=== PATIENT | female | born 1950 | race Two or more races ===

== ENCOUNTER 2019-06-09 14:55 | Inpatient (IN) | payer MEDICARE ==
[~2019-06-09] VITALS: Ht 157.5 cm; Wt 79.2 kg
[2019-06-09 15:24] LABS: BASO # 0.1 x10^3/uL (0.0-0.2); BASO % 1 % (0-3); EOS # 0.3 x10^3/uL (0.0-0.7); EOS % 3 % (0-3); HEMATOCRIT 44.6 % (36.0-47.0); HEMOGLOBIN 15.4 g/dL (12.0-15.5); LYMPH # 4.4 x10^3/uL (1.0-4.8); LYMPH % 45 % (24-48); MEAN CORPUSCULAR HEMOGLOBIN 31 pg (25-35); MEAN CORPUSCULAR HGB CONC 34 g/dL (31-37); MEAN CORPUSCULAR VOLUME 90 fL (79-100); MONO # 0.6 x10^3/uL (0.0-1.1); MONO % 6 % (0-9); NEUT # 4.5 x10^3/uL (1.8-7.7); NEUT % 46 % (31-73); PLATELET COUNT 335 x10^3/uL (140-400); RED BLOOD COUNT 4.94 x10^6/uL (3.50-5.40); RED CELL DISTRIBUTION WIDTH 13.5 % (11.5-14.5); WHITE BLOOD COUNT 9.9 x10^3/uL (4.0-11.0)
[2019-06-09 15:33] LABS: PROTHROMBIN TIME PATIENT 12.8 SEC (11.7-14.0)
[2019-06-09 15:34] LABS: CALCIUM 9.3 mg/dL (8.5-10.1); GFR 55.5; POTASSIUM 3.4 mmol/L (3.5-5.1)
[2019-06-09 15:37] LABS: BILIRUBIN,URINE NEGATIVE (NEG); CLARITY,URINE CLEAR; COLOR,URINE YELLOW; NITRITE,URINE NEGATIVE (NEG); PH,URINE 6.5; PROTEIN,URINE NEGATIVE (NEG-TRACE); UROBILINOGEN,URINE 0.2 mg/dL (0.2 mg/dL)
[2019-06-09 15:43] LABS: ALBUMIN 3.7 g/dL (3.4-5.0); ALBUMIN/GLOBULIN RATIO 0.8 (1.0-1.7); MAGNESIUM 2.1 mg/dL (1.8-2.4); TOTAL BILIRUBIN 0.2 mg/dL (0.2-1.0); TOTAL PROTEIN 8.3 g/dL (6.4-8.2)
[2019-06-09 15:44] LABS: BACTERIA,URINE 0 /HPF (0-FEW); SQUAMOUS EPITHELIAL CELL,UR MOD /LPF; WBC,URINE OCC /HPF (0-4)
--- NOTE | 2019-06-09 15:47 | RAD ---
PORTABLE CHEST 1V Clinical indications: Chest pain. COMPARISON: None available. Findings: Small right lung base infiltrate or atelectasis is seen. No pleural effusion or pneumothorax is evident. The heart size, pulmonary vasculature, mediastinum and both ilan are unremarkable given AP magnification. Impression: Small right lung base infiltrate or atelectasis. Electronically signed by: Braulio Holland MD (06/09/2019 3:45 PM) [id number]
--- NOTE | 2019-06-09 15:52 | PHYS DOC ---
Adult General Chief Complaint Chief Complaint: CHEST PAIN HPI HPI Patient is a 68 year old female who presents with complaining of chest pain. Patient complaining of intermittent episodes of substernal pain or pressure pain with radiation to her back for the last 3 days associated with shortness of breath and nausea and dizziness that gradually getting worse after eating spicy food. Patient with her pain 3/10 and denies fever and chills, cough and congestion, focal neuro deficit. Patient stated she didn't feel good yesterday and stated and today had another episode of chest pain and ventilation and was advised to come to emergency room. Patient states she has had episodes of milder chest pain for a while but did not seek medical attention. Patient was seen by a physician for the last 10 years and denies having any medical problem. Review of Systems Review of Systems Constitutional: Denies fever or chills [] Eyes: Denies change in visual acuity, redness, or eye pain [] HENT: Denies nasal congestion or sore throat [] Respiratory: Denies cough, reports shortness of breath [] Cardiovascular: No additional information not addressed in HPI [] GI: Denies abdominal pain, vomiting, bloody stools or diarrhea [] : Denies dysuria or hematuria [] Musculoskeletal: Denies back pain or joint pain [] Integument: Denies rash or skin lesions [] Neurologic: Denies headache, focal weakness or sensory changes [] Endocrine: Denies polyuria or polydipsia [] All other systems were reviewed and found to be within normal limits, except as documented in this note. Current Medications Current Medications Current Medications Medications (Trade) Dose Ordered Sig/[facility] Start Time Stop Time Status Last Admin Dose Admin Aspirin ([facility] Aspirin) 324 mg 1X ONCE 06/09/19 18:00 06/09/19 18:01 Info (CONTRAST GIVEN -- Rx MONITORING) 1 each PRN DAILY PRN 06/09/19 16:30 06/11/19 16:29 Iohexol (Omnipaque 350 Mg/ml) 100 ml STK-MED ONCE 06/09/19 16:28 06/09/19 16:28 DC Allergies Allergies Allergies Coded Allergies Type Severity Reaction Last Updated Verified No Known Drug Allergies 06/09/19 No Physical Exam Physical Exam Constitutional: Well developed, well nourished, mild distress, non-toxic appearance. [] HENT: Normocephalic, atraumatic. Eyes: PERRLA, EOMI, conjunctiva normal, no discharge. [] Neck: Normal range of motion, no tenderness, supple, no stridor. [] Cardiovascular:Heart rate regular rhythm, no murmur [] Lungs & Thorax: Bilateral breath sounds clear to auscultation [] Abdomen: Bowel sounds normal, soft, epigastric tenderness, no tenderness, no masses, no pulsatile masses. [] Skin: Warm, dry, no erythema, no rash. [] Back: No tenderness, no CVA tenderness. [] Extremities: No tenderness, no cyanosis, no clubbing, ROM intact, no edema. [] Neurologic: Alert and oriented X 3, no focal deficits noted. [] Psychologic: Affect normal, judgement normal, mood normal. [] Current Patient Data Vital Signs Vital Signs Date Time Temp Pulse Resp B/P (MAP) Pulse Ox O2 Delivery O2 Flow Rate FiO2 06/09/19 16:04 66 18 161/69 (99) 93 Room Air 06/09/19 14:57 98.4 98.4 Lab Values Laboratory Tests Test 06/09/19 15:10 06/09/19 15:26 White Blood Count 9.9 x10^3/uL (4.0-11.0) Red Blood Count 4.94 x10^6/uL (3.50-5.40) Hemoglobin 15.4 g/dL (12.0-15.5) Hematocrit 44.6 % (36.0-47.0) Mean Corpuscular Volume 90 fL (79-100) Mean Corpuscular Hemoglobin 31 pg (25-35) Mean Corpuscular Hemoglobin Concent 34 g/dL (31-37) Red Cell Distribution Width 13.5 % (11.5-14.5) Platelet Count 335 x10^3/uL (140-400) Neutrophils (%) (Auto) 46 % (31-73) Lymphocytes (%) (Auto) 45 % (24-48) Monocytes (%) (Auto) 6 % (0-9) Eosinophils (%) (Auto) 3 % (0-3) Basophils (%) (Auto) 1 % (0-3) Neutrophils # (Auto) 4.5 x10^3/uL (1.8-7.7) Lymphocytes # (Auto) 4.4 x10^3/uL (1.0-4.8) Monocytes # (Auto) 0.6 x10^3/uL (0.0-1.1) Eosinophils # (Auto) 0.3 x10^3/uL (0.0-0.7) Basophils # (Auto) 0.1 x10^3/uL (0.0-0.2) Prothrombin Time 12.8 SEC (11.7-14.0) Prothrombin Time INR 1.0 (0.8-1.1) Sodium Level 143 mmol/L (136-145) Potassium Level 3.4 mmol/L (3.5-5.1) L Chloride Level 105 mmol/L (98-107) Carbon Dioxide Level 27 mmol/L (21-32) Anion Gap 11 (6-14) Blood Urea Nitrogen 12 mg/dL (7-20) Creatinine 1.0 mg/dL (0.6-1.0) Estimated GFR (Cockcroft-Gault) 55.5 BUN/Creatinine Ratio 12 (6-20) Glucose Level 119 mg/dL (70-99) H Calcium Level 9.3 mg/dL (8.5-10.1) Magnesium Level 2.1 mg/dL (1.8-2.4) Total Bilirubin 0.2 mg/dL (0.2-1.0) Aspartate Amino Transferase (AST) 31 U/L (15-37) Alanine Aminotransferase (ALT) 37 U/L (14-59) Alkaline Phosphatase 105 U/L (46-116) Creatine Kinase 126 U/L (26-192) Troponin I Quantitative < 0.017 ng/mL (0.000-0.055) OI-Hwi-T-Type Natriuretic Peptide 52 pg/mL (0-124) Total Protein 8.3 g/dL (6.4-8.2) H Albumin 3.7 g/dL (3.4-5.0) Albumin/Globulin Ratio 0.8 (1.0-1.7) L Lipase 337 U/L (73-393) Urine Collection Type Unknown Urine Color Yellow Urine Clarity Clear Urine pH 6.5 Urine Specific [place] 1.010 Urine Protein Negative mg/dL (NEG-TRACE) Urine Glucose (UA) Negative mg/dL (NEG) Urine Ketones (Stick) Negative mg/dL (NEG) Urine Blood Trace (NEG) Urine Nitrite Negative (NEG) Urine Bilirubin Negative (NEG) Urine Urobilinogen Dipstick 0.2 mg/dL (0.2 mg/dL) Urine Leukocyte Esterase Negative (NEG) Urine RBC 1-2 /HPF (0-2) Urine WBC Occ /HPF (0-4) Urine Squamous Epithelial Cells Mod /LPF Urine Bacteria 0 /HPF (0-FEW) Laboratory Tests 06/09/19 15:10 Laboratory Tests 06/09/19 15:10 EKG EKG EKG interpreted by me. EKG at 1505 showed normal sinus rhythm at rate of 78, incomplete right bundle-branch block, no acute ST and T-wave elevation. Radiology/Procedures Radiology/Procedures [][address] [address] IMAGING REPORT Signed PATIENT: PARI BHAGAT ACCOUNT: [id number] : 1950 LOCATION: ER AGE: 68 SEX: F EXAM STATUS: PRE ER ORD. PHYSICIAN: HEIDE WELSH MD REASON: chest pain PROCEDURE: PORTABLE CHEST 1V PORTABLE CHEST 1V Clinical indications: Chest pain. COMPARISON: None available. Findings: Small right lung base infiltrate or atelectasis is seen. No pleural effusion or pneumothorax is evident. The heart size, pulmonary vasculature, mediastinum and both ilan are unremarkable given AP magnification. Impression: Small right lung base infiltrate or atelectasis. Electronically signed by: Nita Holland MD (06/09/2019 3:45 PM) [id number] DICTATED and SIGNED BY: NITA HOLLAND MD DATE: 06/09/19 1545 [facility] [address] [place] [address] IMAGING REPORT Signed PATIENT: PARI BHAGAT ACCOUNT: [id number] : 1950 LOCATION: ER AGE: 68 SEX: F EXAM STATUS: REG ER ORD. PHYSICIAN: HEIDE WELSH MD REASON: epigastric and substernal pain PROCEDURE: ABDOMEN LTD ABDOMEN LTD: 06/09/2019 3:14 PM Indication: 68 years old Female. Epigastric and substernal pain. Comparison: None. TECHNIQUE: Sonographic evaluation of the right upper quadrant was performed utilizing grayscale and color Doppler imaging. FINDINGS: Liver: There is diffuse increased echogenicity of the hepatic parenchyma compatible with diffuse hepatocellular disease, most commonly due to steatosis. This decreases the sensitivity of ultrasound for the detection of focal hepatic lesions.. There is hepatopedal flow within the portal venous system. Right hepatic lobe measures 18.7 cm. Biliary system: CBD measures 4 mm. There is no intrahepatic or extrahepatic biliary dilatation. Gallbladder: Contracted limiting evaluation. Sonographic Wong sign: Negative Pancreas: Visualized head and uncinate process are unremarkable. Body and tail are not visualized. Right kidney: 10.0 x 4.6 x 3.9 cm. No hydronephrosis. Normal echotexture without focal mass or renal calculus. Free fluid:None. IMPRESSION: Increased echogenicity of the hepatic parenchyma compatible with diffuse hepatocellular disease, most commonly hepatic steatosis. This symptoms evaluation for underlying hepatic masses. If there is persistent clinical concern, further evaluation with MRI is recommended. Contracted gallbladder limiting evaluation. Electronically signed by: Swathi Branch MD (06/09/2019 4:08 PM) [facility] DICTATED and SIGNED BY: SWATHI BRANCH MD DATE: 06/09/19 1608 [facility] [address] [place] [address] IMAGING REPORT Signed PATIENT: PARI BHAGAT ACCOUNT: [id number] : 1950 LOCATION: ER AGE: 68 SEX: F EXAM STATUS: REG ER ORD. PHYSICIAN: HEIDE WELSH MD REASON: hypoxia no lung problem history PROCEDURE: CT ANGIOGRAPHY CHEST EXAM: CT angiography of the chest with intravenous contrast. HISTORY: Hypoxia. TECHNIQUE: Computed tomographic images of the chest were obtained following the administration of 90 cc Omnipaque 350 intravenous contrast according to angiography protocol. Multiplanar reformatting was performed three-dimensional maximum intensity projections were obtained. *One or more of the following individualized dose reduction techniques were utilized for this examination: 1. Automated exposure control. 2. Adjustment of the mA and/or kV according to patient size. 3. Use of iterative reconstruction technique. COMPARISON: None. FINDINGS: There is no convincing pulmonary embolism. Evaluation of the distal pulmonary arteries is limited due to respiratory motion. There is mild cardia megaly. The aorta is normal in caliber and demonstrates a standard aortic arch branching pattern. There are prominent mediastinal and hilar lymph nodes, a nonspecific finding. For reference purposes, there is a right paratracheal lymph node measuring 1.6 cm, a left hilar lymph node measuring 1.5 cm and right hilar lymph node measuring 1.3 cm. There is no pneumothorax or pleural effusion. There is scattered groundglass opacities throughout both lungs. There is suspected superimposed bilateral lower lobe and posterior dependent atelectasis. There is a 6 mm nodule within the right middle lobe along the minor fissure, likely a fissural lymph node. There is a tiny hiatal hernia. There is suspected hepatomegaly, partially excluded from the [id number]. The remainder of the upper abdomen is unremarkable. There is no suspicious osseous lesion. IMPRESSION: 1. No convincing pulmonary embolism. 2. Nonspecific groundglass opacities scattered throughout both lungs likely due to air trapping with superimposed edema and lower lobe predominant atelectasis. No consolidated infiltrate is seen. 3. Cardiomegaly. 4. Prominent mediastinal and hilar lymph nodes. These are nonspecific and may be reactive in etiology. 5. 6 mm nodule within the right middle lobe along the minor fissure, likely a fissural lymph node. Follow-up can be performed according to Fleischner Society criteria. Fleischner Society recommendations (Radiology 2017): SOLID NODULES Solitary solid nodule <6 mm - low-risk patient: no routine follow-up required - high-risk patient: optional CT at 12 months (particularly with suspicious nodule morphology and/or upper lobe location) Solitary solid nodule 6-8 mm - low-risk patient: CT at 6-12 months, then consider CT at 18-24 months - high risk patient: CT at 6-12 months, then if persistent CT at 18-24 months Solitary solid nodule >8 mm - consider CT at 3 months, PET/CT, or tissue sampling Multiple solid nodules <6 mm - low-risk patient: no routine follow-up required - high-risk patient: optional CT at 12 months Multiple solid nodules >6 mm - low-risk patient: CT at 3-6 months, then consider CT at 18-24 months - high risk patient: CT at 3-6 months, then if persistent CT at 18-24 months SUBSOLID NODULES Solitary ground glass nodule <6 mm - no routine follow-up required Solitary ground glass nodule > or = 6 mm - CT at 6-12 months, then if persistent CT every 2 years until 5 years Solitary part solid nodule > or = 6mm - CT at 3-4 months, the if persistent and solid component remains <6 mm, annual CT until 5 years Multiple subsolid nodules <6 mm - CT at 3-6 months, then if stable consider CT at 2 and 4 years in high risk patients Multiple subsolid nodules > or = 6 mm - CT at 3-6 months, then subsequent management based on the most suspicious nodule(s) Electronically signed by: Patria Bowling MD (06/09/2019 4:57 PM) [place] [id number] DICTATED and SIGNED BY: PATRIA BOWLING MD DATE: 06/09/191656 Course & Med Decision Making Course & Med Decision Making Pertinent Labs and Imaging studies reviewed. (See chart for details) Patient requiring admission for further evaluation and treatment. Discussed with Dr. Jacome who is in agreement with admission. Discussed findings and plan with patient and family, who acknowledge understanding and agreement. Dragon Disclaimer Dragon Disclaimer This electronic medical record was generated, in whole or in part, using a voice recognition dictation system. Departure Departure Impression: Primary Impression: Acute chest pain Additional Impression: Hypoxia Disposition: 09 ADMITTED INPATIENT (at 1750) Admitting Physician: LUIS (Dr jacome accepted admission at 1750) Condition: IMPROVED Problem Qualifiers HEIDE WELSH MD Jun 09, 2019 15:52
--- NOTE | 2019-06-09 16:11 | RAD ---
ABDOMEN LTD: 06/09/2019 3:14 PM Indication: 68 years old Female. Epigastric and substernal pain. Comparison: None. TECHNIQUE: Sonographic evaluation of the right upper quadrant was performed utilizing grayscale and color Doppler imaging. FINDINGS: Liver: There is diffuse increased echogenicity of the hepatic parenchyma compatible with diffuse hepatocellular disease, most commonly due to steatosis. This decreases the sensitivity of ultrasound for the detection of focal hepatic lesions.. There is hepatopedal flow within the portal venous system. Right hepatic lobe measures 18.7 cm. Biliary system: CBD measures 4 mm. There is no intrahepatic or extrahepatic biliary dilatation. Gallbladder: Contracted limiting evaluation. Sonographic Wong sign: Negative Pancreas: Visualized head and uncinate process are unremarkable. Body and tail are not visualized. Right kidney: 10.0 x 4.6 x 3.9 cm. No hydronephrosis. Normal echotexture without focal mass or renal calculus. Free fluid:None. IMPRESSION: Increased echogenicity of the hepatic parenchyma compatible with diffuse hepatocellular disease, most commonly hepatic steatosis. This symptoms evaluation for underlying hepatic masses. If there is persistent clinical concern, further evaluation with MRI is recommended. Contracted gallbladder limiting evaluation. Electronically signed by: Delfina Knowles MD (06/09/2019 4:08 PM) [facility]
[2019-06-09] MEDS ORDERED: IOHEXOL 350 MG/ML 100 ML VIAL. ONE (16:28)
[2019-06-09] MEDS ORDERED: CONTRAST GIVEN. MC PRN (16:30)
[2019-06-09] MEDS ORDERED: IOHEXOL 350 MG/ML 100 ML VIAL. IV ONE (16:30)
--- NOTE | 2019-06-09 17:00 | RAD ---
EXAM: CT angiography of the chest with intravenous contrast. HISTORY: Hypoxia. TECHNIQUE: Computed tomographic images of the chest were obtained following the administration of 90 cc Omnipaque 350 intravenous contrast according to angiography protocol. Multiplanar reformatting was performed three-dimensional maximum intensity projections were obtained. *One or more of the following individualized dose reduction techniques were utilized for this examination: 1. Automated exposure control. 2. Adjustment of the mA and/or kV according to patient size. 3. Use of iterative reconstruction technique. COMPARISON: None. FINDINGS: There is no convincing pulmonary embolism. Evaluation of the distal pulmonary arteries is limited due to respiratory motion. There is mild cardia megaly. The aorta is normal in caliber and demonstrates a standard aortic arch branching pattern. There are prominent mediastinal and hilar lymph nodes, a nonspecific finding. For reference purposes, there is a right paratracheal lymph node measuring 1.6 cm, a left hilar lymph node measuring 1.5 cm and right hilar lymph node measuring 1.3 cm. There is no pneumothorax or pleural effusion. There is scattered groundglass opacities throughout both lungs. There is suspected superimposed bilateral lower lobe and posterior dependent atelectasis. There is a 6 mm nodule within the right middle lobe along the minor fissure, likely a fissural lymph node. There is a tiny hiatal hernia. There is suspected hepatomegaly, partially excluded from the tprue-mo-cyer. The remainder of the upper abdomen is unremarkable. There is no suspicious osseous lesion. IMPRESSION: 1. No convincing pulmonary embolism. 2. Nonspecific groundglass opacities scattered throughout both lungs likely due to air trapping with superimposed edema and lower lobe predominant atelectasis. No consolidated infiltrate is seen. 3. Cardiomegaly. 4. Prominent mediastinal and hilar lymph nodes. These are nonspecific and may be reactive in etiology. 5. 6 mm nodule within the right middle lobe along the minor fissure, likely a fissural lymph node. Follow-up can be performed according to Fleischner Society criteria. Fleischner Society recommendations (Radiology 2017): SOLID NODULES Solitary solid nodule <6 mm - low-risk patient: no routine follow-up required - high-risk patient: optional CT at 12 months (particularly with suspicious nodule morphology and/or upper lobe location) Solitary solid nodule 6-8 mm - low-risk patient: CT at 6-12 months, then consider CT at 18-24 months - high risk patient: CT at 6-12 months, then if persistent CT at 18-24 months Solitary solid nodule >8 mm - consider CT at 3 months, PET/CT, or tissue sampling Multiple solid nodules <6 mm - low-risk patient: no routine follow-up required - high-risk patient: optional CT at 12 months Multiple solid nodules >6 mm - low-risk patient: CT at 3-6 months, then consider CT at 18-24 months - high risk patient: CT at 3-6 months, then if persistent CT at 18-24 months SUBSOLID NODULES Solitary ground glass nodule <6 mm - no routine follow-up required Solitary ground glass nodule > or = 6 mm - CT at 6-12 months, then if persistent CT every 2 years until 5 years Solitary part solid nodule > or = 6mm - CT at 3-4 months, the if persistent and solid component remains <6 mm, annual CT until 5 years Multiple subsolid nodules <6 mm - CT at 3-6 months, then if stable consider CT at 2 and 4 years in high risk patients Multiple subsolid nodules > or = 6 mm - CT at 3-6 months, then subsequent management based on the most suspicious nodule(s) Electronically signed by: Patria Godoy MD (06/09/2019 4:57 PM) [facility]
[2019-06-09] MEDS ORDERED: ASPIRIN CHEWABLE 81 MG TABLET. PO ONE (18:00)
[2019-06-09] MEDS ORDERED: POTASSIUM CHLORIDE 20 MEQ TABLET.ER. PO ONE (19:00)
[2019-06-09 19:30] VITALS: BP 182/80
--- NOTE | 2019-06-09 20:00 | NUR ---
A 68 yo female admitted with chest pain, accompanied by family. Pt a/ox3, denies pain at this time. Admission packet given, poc explained ,call light in place, will cont to monitor pt status and safety. pmrn
--- NOTE | 2019-06-09 20:22 | HP ---
ADMIT DATE: 06/09/2019 CHIEF COMPLAINT: Chest pain. HISTORY OF PRESENT ILLNESS: The patient is a pleasant 68-year-old female who presents with chest pain that has been intermittent and substernal in nature. She feels pressure in her chest, radiates to her back. It has been occurring for 3 days at least. She tried taking some dpew-ysl-pnezhhj meds that did not work. We did some imaging in the ER, also showing some pulmonary nodules. I discussed the case with ER physician. We are going to admit the patient and consult Cardiology and Pulmonary. PAST MEDICAL HISTORY: None. ALLERGIES: None. FAMILY HISTORY: Hypertension. SOCIAL HISTORY: She does not drink, smoke or take drugs. Her daughters are nurses. 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 MEDICATIONS: Reviewed, please refer to the MRAD. REVIEW OF SYSTEMS: GENERAL: No history of weight change, weakness or fevers. SKIN: No bruising, hair changes or rashes. EYES: No blurred, double or loss of vision. NOSE AND THROAT: No history of nosebleeds, hoarseness or sore throat. HEART: No history of palpitations, chest pain or shortness of breath on exertion. LUNGS: Denies cough, hemoptysis, wheezing or shortness of breath. GASTROINTESTINAL: Denies changes in appetite, nausea, vomiting, diarrhea or constipation. GENITOURINARY: No history of frequency, urgency, hesitancy or nocturia. NEUROLOGIC: Denies history of numbness, tingling, tremor or weakness. PSYCHIATRIC: No history of panic, anxiety or depression. ENDOCRINE: No history of heat or cold intolerance, polyuria or polydipsia. EXTREMITIES: Denies muscle weakness, joint pain, pain on walking or stiffness. PHYSICAL EXAMINATION: VITALS: Within normal limits and are stable. GENERAL: No apparent distress. Alert and oriented. HEENT: Head is normocephalic, atraumatic, pupils were equally round and reactive to light and accommodation. NECK: Supple, no JVD, no thyromegaly was noted. LUNGS: Clear to auscultation in all lung gandhi without rhonchi or wheezing. HEART: RRR, S1, S2 present. Peripheral pulses intact, no obvious murmurs were noted. ABDOMEN: Soft, nontender. Positive bowel sounds no organomegaly, normal bowel sounds. EXTREMITIES: Without any cyanosis, clubbing, or edema. Pedal pulses intact, Homans sign is negative. NEUROLOGIC: Normal speech, normal tone. A and O x 3, moves all extremities, no obvious focal deficits. PSYCHIATRIC: Normal affect, normal mood. Stable. SKIN: No ulcerations or rashes, good skin turgor, no jaundice. VASCULAR: Good capillary refill, neurovascular bundle appears to be intact. LABORATORY DATA: Hematology is normal. Electrolytes are normal. Troponin is 0. Potassium is little low at 3.4. INR is 1. Urinalysis negative. ASSESSMENT AND PLAN: Chest pain and pulmonary nodules. The patient has been admitted. We will consult Pulmonary and Cardiology. Serial enzymes, serial EKGs. Suspect she might need a stress test, but we will await Cardiology input. DVT prophylaxis. Full code. Home meds. CHRISTOS DESIR DO DR: NANNETTE/siobhan JOB#: [id number] / [id number]
[2019-06-09] MEDS ORDERED: amLODIPine BESYLATE 10 MG TABLET PO ONE (21:00)
[2019-06-09 23:00] VITALS: BP 177/77
[2019-06-10] MEDS ORDERED: ONDANSETRON PF 4 MG/2 ML VIAL. IVP PRN (02:00)
[2019-06-10] MEDS ORDERED: hydrALAZINE 20 MG/ML VIAL. IVP PRN (02:00)
[2019-06-10 03:00] VITALS: BP 180/78
[2019-06-10] MEDS ORDERED: INFLUENZA VAX SCREEN BY RX. MC PRN (03:15)
[2019-06-10 04:01] VITALS: BP 118/62
[2019-06-10 05:57] LABS: CHOLESTEROL/HDL RATIO 4.9
--- NOTE | 2019-06-10 06:16 | EKG ---
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
[2019-06-10 07:00] VITALS: BP 147/75
[2019-06-10] MEDS ORDERED: amLODIPine BESYLATE 10 MG TABLET PO SCH (09:00)
[2019-06-10] MEDS ORDERED: FLU VAX QS 2019-20 (36MOS+)/PF 0.5 ML SYRINGE. VAX IM ONE (09:00)
--- NOTE | 2019-06-10 10:36 | PDOC2 ---
CARDIAC CONSULT DATE OF CONSULT Date of Consult DATE: 06/10/19 TIME: 10:35 REASON FOR CONSULT Reason for Consult: Chest pain REFERRING PHYSICIAN Referring Physician: Naa SOURCE Source: Chart review, Patient HISTORY OF PRESENT ILLNESS HISTORY OF PRESENT ILLNESS This is a pleasant 68 yo female admitted for complains of chest pain. Reports that this started the other day. Described it as sharp pain mainly to epigastric sternal junction lasting <1 minute and radiating to immediate mid back. This occurred again yesterday afternoon prompting her to be more concerned. She has been belching and sometimes nausea and has sourness in the back of her throat intermittently. Reports again that her discomfort last only <1 minute. Denies any SOA, nor [place]. No exertional CP and no changes to her activity tolerance. Reports that she has not seen any physicioan for a while. No routine medications. No hx of PUD, CAD, VTE or any falls or injury. She does take zantac at times for her heartburn. PAST MEDICAL HISTORY Past Medical History No pertinent history PAST SURGICAL HISTORY Past Surgical History: No pertinent history FAMILY HISTORY Family History noncontributory to CV SOCIAL HISTORY Smoke: No ALCOHOL: none Drugs: None Lives: with Family CURRENT MEDICATIONS CURRENT MEDICATIONS Current Medications Medications (Trade) Dose Ordered Sig/Kentrell Route PRN Reason Start Time Stop Time Status Last Admin Dose Admin Iohexol (Omnipaque 350 Mg/ml) 90 ml 1X ONCE IV 06/09/19 16:30 06/09/19 16:31 DC 06/09/19 16:43 Aspirin (Children'S Aspirin) 324 mg 1X ONCE PO 06/09/19 18:00 06/09/19 18:01 DC 06/09/19 18:22 Potassium Chloride (Klor-Con) 40 meq 1X ONCE PO 06/09/19 19:00 06/09/19 19:01 DC 06/09/19 19:22 Amlodipine Besylate (Norvasc) 10 mg 1X ONCE PO 06/09/19 21:00 06/09/19 21:01 DC 06/09/19 21:12 Amlodipine Besylate (Norvasc) 10 mg DAILY PO 06/10/19 09:00 06/10/19 09:13 Ondansetron HCl (Zofran) 4 mg PRN Q4HRS PRN IVP NAUSEA/VOMITING 06/10/19 02:00 06/10/19 02:11 Hydralazine HCl (Apresoline Inj) 10 mg PRN Q4HRS PRN IVP ELEVATED BP, SEE COMMENTS 06/10/19 02:00 06/10/19 02:12 ALLERGIES ALLERGIES: Coded Allergies: No Known Drug Allergies (Unverified , 06/09/19) ROS Review of System 14 point ROS evaluated with pertinent positives noted per HPI PHYSICAL EXAM General: Alert, Oriented X3, Cooperative, No acute distress HEENT: Atraumatic, Mucous membr. moist/pink Lungs: Clear to auscultation, Normal air movement Heart: Regular rate (SR), Normal S1, Normal S2, No murmurs Abdomen: Soft, No tenderness Extremities: No cyanosis, No edema Skin: No breakdown, No significant lesion Neuro: Normal speech, Sensation intact Psych/Mental Status: Mental status NL, Mood NL MUSCULOSKELETAL: Osteoarthritic changes both hands VITALS/I&O VITALS/I&O: Vital Signs Date Time Temp Pulse Resp B/P (MAP) Pulse Ox O2 Delivery O2 Flow Rate FiO2 06/10/19 09:13 90 147/75 06/10/19 07:00 98.2 16 94 Room Air 98.2 06/10/19 03:00 94.0 I & O 06/09/19 06/09/19 06/10/19 15:00 23:00 07:00 Intake Total 250 ml Output Total 500 ml 200 ml Balance -500 ml 50 ml LABS Lab: Laboratory Tests Test 06/09/19 15:10 06/09/19 15:26 06/10/19 04:43 White Blood Count 9.9 x10^3/uL (4.0-11.0) Red Blood Count 4.94 x10^6/uL (3.50-5.40) Hemoglobin 15.4 g/dL (12.0-15.5) Hematocrit 44.6 % (36.0-47.0) Mean Corpuscular Volume 90 fL (79-100) Mean Corpuscular Hemoglobin 31 pg (25-35) Mean Corpuscular Hemoglobin Concent 34 g/dL (31-37) Red Cell Distribution Width 13.5 % (11.5-14.5) Platelet Count 335 x10^3/uL (140-400) Neutrophils (%) (Auto) 46 % (31-73) Lymphocytes (%) (Auto) 45 % (24-48) Monocytes (%) (Auto) 6 % (0-9) Eosinophils (%) (Auto) 3 % (0-3) Basophils (%) (Auto) 1 % (0-3) Neutrophils # (Auto) 4.5 x10^3/uL (1.8-7.7) Lymphocytes # (Auto) 4.4 x10^3/uL (1.0-4.8) Monocytes # (Auto) 0.6 x10^3/uL (0.0-1.1) Eosinophils # (Auto) 0.3 x10^3/uL (0.0-0.7) Basophils # (Auto) 0.1 x10^3/uL (0.0-0.2) Prothrombin Time 12.8 SEC (11.7-14.0) Prothrombin Time INR 1.0 (0.8-1.1) Sodium Level 143 mmol/L (136-145) Potassium Level 3.4 mmol/L (3.5-5.1) L Chloride Level 105 mmol/L (98-107) Carbon Dioxide Level 27 mmol/L (21-32) Anion Gap 11 (6-14) Blood Urea Nitrogen 12 mg/dL (7-20) Creatinine 1.0 mg/dL (0.6-1.0) Estimated GFR (Cockcroft-Gault) 55.5 BUN/Creatinine Ratio 12 (6-20) Glucose Level 119 mg/dL (70-99) H Calcium Level 9.3 mg/dL (8.5-10.1) Magnesium Level 2.1 mg/dL (1.8-2.4) Total Bilirubin 0.2 mg/dL (0.2-1.0) Aspartate Amino Transferase (AST) 31 U/L (15-37) Alanine Aminotransferase (ALT) 37 U/L (14-59) Alkaline Phosphatase 105 U/L (46-116) Creatine Kinase 126 U/L (26-192) Troponin I Quantitative < 0.017 ng/mL (0.000-0.055) < 0.017 ng/mL (0.000-0.055) YK-Jtv-D-Type Natriuretic Peptide 52 pg/mL (0-124) Total Protein 8.3 g/dL (6.4-8.2) H Albumin 3.7 g/dL (3.4-5.0) Albumin/Globulin Ratio 0.8 (1.0-1.7) L Lipase 337 U/L (73-393) Urine Collection Type Unknown Urine Color Yellow Urine Clarity Clear Urine pH 6.5 Urine Specific [place] 1.010 Urine Protein Negative mg/dL (NEG-TRACE) Urine Glucose (UA) Negative mg/dL (NEG) Urine Ketones (Stick) Negative mg/dL (NEG) Urine Blood Trace (NEG) Urine Nitrite Negative (NEG) Urine Bilirubin Negative (NEG) Urine Urobilinogen Dipstick 0.2 mg/dL (0.2 mg/dL) Urine Leukocyte Esterase Negative (NEG) Urine RBC 1-2 /HPF (0-2) Urine WBC Occ /HPF (0-4) Urine Squamous Epithelial Cells Mod /LPF Urine Bacteria 0 /HPF (0-FEW) Triglycerides Level 123 mg/dL (0-150) Cholesterol Level 172 mg/dL (0-200) LDL Cholesterol, Calculated 112 mg/dL (0-100) H VLDL Cholesterol, Calculated 25 mg/dL (0-40) Non-HDL Cholesterol Calculated 137 mg/dL (0-129) H HDL Cholesterol 35 mg/dL (40-60) L Cholesterol/HDL Ratio 4.9 Thyroid Stimulating Hormone (TSH) 5.030 uIU/mL (0.358-3.74) H Laboratory Tests 06/09/19 15:10 Laboratory Tests 06/09/19 15:10 ASSESSMENT/PLAN ASSESSMENT/PLAN 1. Atypical CP: possibly GI 2. RBBB: no prior EKG for comparison 3. HTN urgency 4. HLP 5. Obesity Recommendations 1. Agree with amlodipine. Statin 2. TTE and TSH 3. Will consider for outpt stress test. 4. Consider GI workup as an outpt 5. PPI 6. Follow up in office LILIANA FREITAS APRN Jun 10, 2019 10:36
[2019-06-10 10:40] VITALS: BP 142/67
--- NOTE | 2019-06-10 13:05 | PDOC ---
[facility] PROGRESS NOTE Chief Complaint Chief Complaint Atypical chest pain Elevated TSH History of Present Illness History of Present Illness 06/10/19 Pt was seen and examined at bedside Was joined by and granddaughter TSH elevated at 5.030 Troponin was <0.017 Ground glass opacities, lower lobe atelectasis in lungs on CTA Charts and labs reviewed DW YAA Vitals/I&O Vitals/I&O: Vital Signs Date Time Temp Pulse Resp B/P (MAP) Pulse Ox O2 Delivery O2 Flow Rate FiO2 06/10/19 10:40 98.3 78 18 142/67 (92) 95 Room Air 98.3 06/10/19 03:00 94.0 I & O 06/09/19 06/09/19 06/10/19 15:00 23:00 07:00 Intake Total 250 ml Output Total 500 ml 200 ml Balance -500 ml 50 ml Physical Exam General: Alert, Oriented X3, Cooperative, mild distress Heart: Regular rate Abdomen: Normal bowel sounds Extremities: No clubbing, No cyanosis, No edema Skin: No rashes, No breakdown Labs Labs: Laboratory Tests Test 06/09/19 15:10 06/09/19 15:26 06/10/19 04:43 White Blood Count 9.9 x10^3/uL (4.0-11.0) Red Blood Count 4.94 x10^6/uL (3.50-5.40) Hemoglobin 15.4 g/dL (12.0-15.5) Hematocrit 44.6 % (36.0-47.0) Mean Corpuscular Volume 90 fL (79-100) Mean Corpuscular Hemoglobin 31 pg (25-35) Mean Corpuscular Hemoglobin Concent 34 g/dL (31-37) Red Cell Distribution Width 13.5 % (11.5-14.5) Platelet Count 335 x10^3/uL (140-400) Neutrophils (%) (Auto) 46 % (31-73) Lymphocytes (%) (Auto) 45 % (24-48) Monocytes (%) (Auto) 6 % (0-9) Eosinophils (%) (Auto) 3 % (0-3) Basophils (%) (Auto) 1 % (0-3) Neutrophils # (Auto) 4.5 x10^3/uL (1.8-7.7) Lymphocytes # (Auto) 4.4 x10^3/uL (1.0-4.8) Monocytes # (Auto) 0.6 x10^3/uL (0.0-1.1) Eosinophils # (Auto) 0.3 x10^3/uL (0.0-0.7) Basophils # (Auto) 0.1 x10^3/uL (0.0-0.2) Prothrombin Time 12.8 SEC (11.7-14.0) Prothromb Time International Ratio 1.0 (0.8-1.1) Sodium Level 143 mmol/L (136-145) Potassium Level 3.4 mmol/L (3.5-5.1) Chloride Level 105 mmol/L (98-107) Carbon Dioxide Level 27 mmol/L (21-32) Anion Gap 11 (6-14) Blood Urea Nitrogen 12 mg/dL (7-20) Creatinine 1.0 mg/dL (0.6-1.0) Estimated GFR (Cockcroft-Gault) 55.5 BUN/Creatinine Ratio 12 (6-20) Glucose Level 119 mg/dL (70-99) Calcium Level 9.3 mg/dL (8.5-10.1) Magnesium Level 2.1 mg/dL (1.8-2.4) Total Bilirubin 0.2 mg/dL (0.2-1.0) Aspartate Amino Transf (AST/SGOT) 31 U/L (15-37) Alanine Aminotransferase (ALT/SGPT) 37 U/L (14-59) Alkaline Phosphatase 105 U/L (46-116) Creatine Kinase 126 U/L (26-192) Troponin I Quantitative < 0.017 ng/mL (0.000-0.055) < 0.017 ng/mL (0.000-0.055) AA-Cux-Y-Type Natriuretic Peptide 52 pg/mL (0-124) Total Protein 8.3 g/dL (6.4-8.2) Albumin 3.7 g/dL (3.4-5.0) Albumin/Globulin Ratio 0.8 (1.0-1.7) Lipase 337 U/L (73-393) Urine Collection Type Unknown Urine Color Yellow Urine Clarity Clear Urine pH 6.5 Urine Specific [place] 1.010 Urine Protein Negative mg/dL (NEG-TRACE) Urine Glucose (UA) Negative mg/dL (NEG) Urine Ketones (Stick) Negative mg/dL (NEG) Urine Blood Trace (NEG) Urine Nitrite Negative (NEG) Urine Bilirubin Negative (NEG) Urine Urobilinogen Dipstick 0.2 mg/dL (0.2 mg/dL) Urine Leukocyte Esterase Negative (NEG) Urine RBC 1-2 /HPF (0-2) Urine WBC Occ /HPF (0-4) Urine Squamous Epithelial Cells Mod /LPF Urine Bacteria 0 /HPF (0-FEW) Triglycerides Level 123 mg/dL (0-150) Cholesterol Level 172 mg/dL (0-200) LDL Cholesterol, Calculated 112 mg/dL (0-100) VLDL Cholesterol, Calculated 25 mg/dL (0-40) Non-HDL Cholesterol Calculated 137 mg/dL (0-129) HDL Cholesterol 35 mg/dL (40-60) Cholesterol/HDL Ratio 4.9 Thyroid Stimulating Hormone (TSH) 5.030 uIU/mL (0.358-3.74) Review of Systems Review of Systems: No headache, no changes in vision No nausea, no vomiting Assessment and Plan Assessmemt and Plan Problems Medical Problems: (1) Acute chest pain Status: Acute (2) Hypoxia Status: Acute Assessment Atypical chest pain Euthyroid sick syndrome Plan Cardiac monitoring GI workup recommended Monitor EKG, serial enzymes Aspirin Synthroid 25 mcg daily DVT prophylaxis Full code Comment Review of Relevant I have reviewed the following items dereck (where applicable) has been applied. Medications: Current Medications Medications (Trade) Dose Ordered Sig/Kentrell Route PRN Reason Start Time Stop Time Status Last Admin Dose Admin Iohexol (Omnipaque 350 Mg/ml) 90 ml 1X ONCE IV 06/09/19 16:30 06/09/19 16:31 DC 06/09/19 16:43 Aspirin (Children'S Aspirin) 324 mg 1X ONCE PO 06/09/19 18:00 06/09/19 18:01 DC 06/09/19 18:22 Potassium Chloride (Klor-Con) 40 meq 1X ONCE PO 06/09/19 19:00 06/09/19 19:01 DC 06/09/19 19:22 Amlodipine Besylate (Norvasc) 10 mg 1X ONCE PO 06/09/19 21:00 06/09/19 21:01 DC 06/09/19 21:12 Amlodipine Besylate (Norvasc) 10 mg DAILY PO 06/10/19 09:00 06/10/19 09:13 Ondansetron HCl (Zofran) 4 mg PRN Q4HRS PRN IVP NAUSEA/VOMITING 06/10/19 02:00 06/10/19 02:11 Hydralazine HCl (Apresoline Inj) 10 mg PRN Q4HRS PRN IVP ELEVATED BP, SEE COMMENTS 06/10/19 02:00 06/10/19 02:12 CHRISTOS DESIR III DO Jun 10, 2019 13:05
--- NOTE | 2019-06-10 14:04 | CARD ---
MR#: [id number] Date of Study: 06/10/2019 Ordering Physician: LILIANA FREITAS, Referring Physician: LILIANA FREITAS, Tech: Gillian Natarajan APPROVED REPORT EXAM: Two-dimensional and M-mode echocardiogram with Doppler and color Doppler. Other Information Quality : AverageHR: 82bpm INDICATION Chest Pain 2D DIMENSIONS RVDd2.1 (2.9-3.5cm)Left Atrium(2D)3.3 (1.6-4.0cm) IVSd1.2 (0.7-1.1cm)Aortic Root(2D)2.6 (2.0-3.7cm) LVDd4.1 (3.9-5.9cm)LVOT Diameter2.0 (1.8-2.4cm) PWd0.9 (0.7-1.1cm)LVDs2.5 (2.5-4.0cm) FS (%) 39.2 %SV53.3 ml Aortic Valve AoV Peak Henri.175.9cm/sAoV VTI32.2cm AO Peak GR.12.4mmHgLVOT VTI 22.32cm AO Mean GR.6mmHgAI P 1/2 Olgv843uo Mitral Valve MV E Rtuonmul22.7cm/sMV DECEL MQEO564ha MV A Uzdvvauq124.4cm/sE/A Ratio0.9 TDI Lateral E' P. V8.62cm/sMedial E' P. V8.56cm/s E/Lateral E'10.8E/Medial E'10.8 Tricuspid Valve TR P. Qotpnxqt842ir/sRAP LLGDUIHW4zeSo TR Peak Gr.34fcBrIATV36rrVt Pulmonary Vein S1 Ocwruewj33.2cm/sS2 Hlgbcywo59.18cm/s D2 Ltotozmh45.2cm/sPVa fqesqycv457hqol LEFT VENTRICLE The left ventricle is normal size. There is borderline concentric left ventricular hypertrophy. The l eft ventricular systolic function is normal and the ejection fraction is within normal range. The Eje ction Fraction is 55-60%. There is normal LV segmental wall motion. Transmitral Doppler flow pattern is Grade I-abnormal relaxation pattern. RIGHT VENTRICLE The right ventricle is normal size. There is normal right ventricular wall thickness. The right ventr icular systolic function is normal. ATRIA The left atrium size is normal. The right atrium size is normal. The interatrial septum is intact wit h no evidence for an atrial septal defect or patent foramen ovale as noted on 2-D or Doppler imaging. AORTIC VALVE The aortic valve is not well visualized. Doppler and Color Flow revealed trace aortic regurgitation. There is no significant aortic valvular stenosis. MITRAL VALVE The mitral valve is normal in structure and function. There is no evidence of mitral valve prolapse. There is no mitral valve stenosis. Doppler and Color-flow revealed trace mitral regurgitation. TRICUSPID VALVE The tricuspid valve is normal in structure and function. Doppler and Color Flow revealed trace tricus pid regurgitation with an estimated PAP of 33 mmHg. There is no tricuspid valve stenosis. PULMONIC VALVE The pulmonic valve is not well visualized. Doppler and Color Flow revealed no pulmonic valvular regur gitation. GREAT VESSELS The aortic root is normal in size. The IVC is normal in size and collapses >50% with inspiration. PERICARDIAL EFFUSION There is no evidence of significant pericardial effusion. Critical Notification Critical Value: No <Conclusion> The left ventricle is normal size. The left ventricular systolic function is normal and the ejection fraction is within normal range. The Ejection Fraction is 55-60%. There is borderline concentric left ventricular hypertrophy. There is no significant aortic valvular stenosis. Doppler and Color Flow revealed trace aortic regurgitation. Doppler and Color-flow revealed trace mitral regurgitation. Doppler and Color Flow revealed trace tricuspid regurgitation with an estimated PAP of 33 mmHg. Signed by : Joaquin Vega MD Electronically Approved : 06/10/2019 14:03:35
[2019-06-10] MEDS ORDERED: LEVO25TA55 PO (14:47)
[2019-06-10] MEDS ORDERED: AMLO10TA8 PO (14:47)
[2019-06-10] MEDS ORDERED: OMEP20TA63 PO (14:48)
[2019-06-10 14:49] VITALS: BP 127/58
--- NOTE | 2019-06-10 14:52 | PDOC ---
PULMONARY PROGRESS NOTES Vitals Vital Signs Date Time Temp Pulse Resp B/P (MAP) Pulse Ox O2 Delivery O2 Flow Rate FiO2 06/10/19 10:40 98.3 78 18 142/67 (92) 95 Room Air 98.3 06/10/19 08:00 94.0 Labs Laboratory Tests Test 06/09/19 15:10 06/09/19 15:26 06/10/19 04:43 White Blood Count 9.9 x10^3/uL (4.0-11.0) Red Blood Count 4.94 x10^6/uL (3.50-5.40) Hemoglobin 15.4 g/dL (12.0-15.5) Hematocrit 44.6 % (36.0-47.0) Mean Corpuscular Volume 90 fL (79-100) Mean Corpuscular Hemoglobin 31 pg (25-35) Mean Corpuscular Hemoglobin Concent 34 g/dL (31-37) Red Cell Distribution Width 13.5 % (11.5-14.5) Platelet Count 335 x10^3/uL (140-400) Neutrophils (%) (Auto) 46 % (31-73) Lymphocytes (%) (Auto) 45 % (24-48) Monocytes (%) (Auto) 6 % (0-9) Eosinophils (%) (Auto) 3 % (0-3) Basophils (%) (Auto) 1 % (0-3) Neutrophils # (Auto) 4.5 x10^3/uL (1.8-7.7) Lymphocytes # (Auto) 4.4 x10^3/uL (1.0-4.8) Monocytes # (Auto) 0.6 x10^3/uL (0.0-1.1) Eosinophils # (Auto) 0.3 x10^3/uL (0.0-0.7) Basophils # (Auto) 0.1 x10^3/uL (0.0-0.2) Prothrombin Time 12.8 SEC (11.7-14.0) Prothromb Time International Ratio 1.0 (0.8-1.1) Sodium Level 143 mmol/L (136-145) Potassium Level 3.4 mmol/L (3.5-5.1) Chloride Level 105 mmol/L (98-107) Carbon Dioxide Level 27 mmol/L (21-32) Anion Gap 11 (6-14) Blood Urea Nitrogen 12 mg/dL (7-20) Creatinine 1.0 mg/dL (0.6-1.0) Estimated GFR (Cockcroft-Gault) 55.5 BUN/Creatinine Ratio 12 (6-20) Glucose Level 119 mg/dL (70-99) Calcium Level 9.3 mg/dL (8.5-10.1) Magnesium Level 2.1 mg/dL (1.8-2.4) Total Bilirubin 0.2 mg/dL (0.2-1.0) Aspartate Amino Transf (AST/SGOT) 31 U/L (15-37) Alanine Aminotransferase (ALT/SGPT) 37 U/L (14-59) Alkaline Phosphatase 105 U/L (46-116) Creatine Kinase 126 U/L (26-192) Troponin I Quantitative < 0.017 ng/mL (0.000-0.055) < 0.017 ng/mL (0.000-0.055) XF-Khe-F-Type Natriuretic Peptide 52 pg/mL (0-124) Total Protein 8.3 g/dL (6.4-8.2) Albumin 3.7 g/dL (3.4-5.0) Albumin/Globulin Ratio 0.8 (1.0-1.7) Lipase 337 U/L (73-393) Urine Collection Type Unknown Urine Color Yellow Urine Clarity Clear Urine pH 6.5 Urine Specific [place] 1.010 Urine Protein Negative mg/dL (NEG-TRACE) Urine Glucose (UA) Negative mg/dL (NEG) Urine Ketones (Stick) Negative mg/dL (NEG) Urine Blood Trace (NEG) Urine Nitrite Negative (NEG) Urine Bilirubin Negative (NEG) Urine Urobilinogen Dipstick 0.2 mg/dL (0.2 mg/dL) Urine Leukocyte Esterase Negative (NEG) Urine RBC 1-2 /HPF (0-2) Urine WBC Occ /HPF (0-4) Urine Squamous Epithelial Cells Mod /LPF Urine Bacteria 0 /HPF (0-FEW) Triglycerides Level 123 mg/dL (0-150) Cholesterol Level 172 mg/dL (0-200) LDL Cholesterol, Calculated 112 mg/dL (0-100) VLDL Cholesterol, Calculated 25 mg/dL (0-40) Non-HDL Cholesterol Calculated 137 mg/dL (0-129) HDL Cholesterol 35 mg/dL (40-60) Cholesterol/HDL Ratio 4.9 Thyroid Stimulating Hormone (TSH) 5.030 uIU/mL (0.358-3.74) Laboratory Tests Test 06/09/19 15:10 06/09/19 15:26 06/10/19 04:43 White Blood Count 9.9 x10^3/uL (4.0-11.0) Red Blood Count 4.94 x10^6/uL (3.50-5.40) Hemoglobin 15.4 g/dL (12.0-15.5) Hematocrit 44.6 % (36.0-47.0) Mean Corpuscular Volume 90 fL (79-100) Mean Corpuscular Hemoglobin 31 pg (25-35) Mean Corpuscular Hemoglobin Concent 34 g/dL (31-37) Red Cell Distribution Width 13.5 % (11.5-14.5) Platelet Count 335 x10^3/uL (140-400) Neutrophils (%) (Auto) 46 % (31-73) Lymphocytes (%) (Auto) 45 % (24-48) Monocytes (%) (Auto) 6 % (0-9) Eosinophils (%) (Auto) 3 % (0-3) Basophils (%) (Auto) 1 % (0-3) Neutrophils # (Auto) 4.5 x10^3/uL (1.8-7.7) Lymphocytes # (Auto) 4.4 x10^3/uL (1.0-4.8) Monocytes # (Auto) 0.6 x10^3/uL (0.0-1.1) Eosinophils # (Auto) 0.3 x10^3/uL (0.0-0.7) Basophils # (Auto) 0.1 x10^3/uL (0.0-0.2) Prothrombin Time 12.8 SEC (11.7-14.0) Prothromb Time International Ratio 1.0 (0.8-1.1) Sodium Level 143 mmol/L (136-145) Potassium Level 3.4 mmol/L (3.5-5.1) Chloride Level 105 mmol/L (98-107) Carbon Dioxide Level 27 mmol/L (21-32) Anion Gap 11 (6-14) Blood Urea Nitrogen 12 mg/dL (7-20) Creatinine 1.0 mg/dL (0.6-1.0) Estimated GFR (Cockcroft-Gault) 55.5 BUN/Creatinine Ratio 12 (6-20) Glucose Level 119 mg/dL (70-99) Calcium Level 9.3 mg/dL (8.5-10.1) Magnesium Level 2.1 mg/dL (1.8-2.4) Total Bilirubin 0.2 mg/dL (0.2-1.0) Aspartate Amino Transf (AST/SGOT) 31 U/L (15-37) Alanine Aminotransferase (ALT/SGPT) 37 U/L (14-59) Alkaline Phosphatase 105 U/L (46-116) Creatine Kinase 126 U/L (26-192) Troponin I Quantitative < 0.017 ng/mL (0.000-0.055) < 0.017 ng/mL (0.000-0.055) VO-Mkl-A-Type Natriuretic Peptide 52 pg/mL (0-124) Total Protein 8.3 g/dL (6.4-8.2) Albumin 3.7 g/dL (3.4-5.0) Albumin/Globulin Ratio 0.8 (1.0-1.7) Lipase 337 U/L (73-393) Urine Collection Type Unknown Urine Color Yellow Urine Clarity Clear Urine pH 6.5 Urine Specific [place] 1.010 Urine Protein Negative mg/dL (NEG-TRACE) Urine Glucose (UA) Negative mg/dL (NEG) Urine Ketones (Stick) Negative mg/dL (NEG) Urine Blood Trace (NEG) Urine Nitrite Negative (NEG) Urine Bilirubin Negative (NEG) Urine Urobilinogen Dipstick 0.2 mg/dL (0.2 mg/dL) Urine Leukocyte Esterase Negative (NEG) Urine RBC 1-2 /HPF (0-2) Urine WBC Occ /HPF (0-4) Urine Squamous Epithelial Cells Mod /LPF Urine Bacteria 0 /HPF (0-FEW) Triglycerides Level 123 mg/dL (0-150) Cholesterol Level 172 mg/dL (0-200) LDL Cholesterol, Calculated 112 mg/dL (0-100) VLDL Cholesterol, Calculated 25 mg/dL (0-40) Non-HDL Cholesterol Calculated 137 mg/dL (0-129) HDL Cholesterol 35 mg/dL (40-60) Cholesterol/HDL Ratio 4.9 Thyroid Stimulating Hormone (TSH) 5.030 uIU/mL (0.358-3.74) Medications Active Scripts Medications Dose Route/Sig Max Daily Dose Days Date Category Prilosec Otc (Omeprazole Magnesium) 20 Mg Tablet.dr 1 Tab PO DAILY 30 06/10/19 Reported Amlodipine Besylate 10 Mg Tablet 10 Mg PO DAILY 06/10/19 Reported Synthroid (Levothyroxine Sodium) 25 Mcg Tablet 1 Tab PO DAILY 06/10/19 Reported Impression . full note dictated will need a ct in 6 months gave pt appt to follow up with me in 6 months January 11;30 this is a different plan that was discussed in my dictated note ELTON ZHOU MD Jun 10, 2019 14:52
--- NOTE | 2019-06-10 15:23 | NUR ---
Discharge Note: [facility] [address] [place] [address] Discharge instructions and discharge home medications reviewed with Patient and a copy given. All questions have been answered and understanding verbalized. The following instructions and handouts were given: CP Discontinued IV line Patient discharged to home with self care via family
[2019-06-10] MEDS ORDERED: LOVA20TA2 PO (16:02)
--- NOTE | 2019-06-10 21:50 | CONS ---
DATE OF CONSULTATION: 06/10/2019 ATTENDING PHYSICIAN: Og Jacome DO CONSULTING PHYSICIAN: Elton Zhou MD REASON FOR CONSULTATION: The patient seen in pulmonary consultation at the request of Dr. Jacome for abnormal CT chest revealing pulmonary nodule. HISTORY OF PRESENT ILLNESS: The patient is a lifetime nonsmoker who presented with a chief complaint of shortness of breath. She was evaluated and underwent CT angiogram revealing no evidence of pulmonary embolism. There were some pulmonary nodules, mediastinal lymph nodes that were somewhat prominent. The patient also had some ground-glass opacities compatible with either air trapping or pulmonary edema. The patient reports she is now feeling better. She has been seen by Cardiology. She denies any fever, chills, nausea, vomiting, diarrhea. PAST MEDICAL HISTORY: None. ALLERGIES: No known drug allergies. FAMILY HISTORY: Hypertension. 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 HOME MEDICATIONS: List was reviewed. REVIEW OF SYSTEM: CONSTITUTIONAL: No fever or chills. EYES: No change in visual acuity. HENT: No nasal congestion or sore throat. PULMONARY: As indicated above. CARDIOVASCULAR: As indicated above. GASTROINTESTINAL: No nausea, vomiting, diarrhea. GENITOURINARY: No dysuria or frequency. MUSCULOSKELETAL: No localized muscle aches or joint pains. SKIN: No new skin rashes. NEUROLOGIC: No headaches, diplopia or blurred vision. PHYSICAL EXAMINATION: VITAL SIGNS: Stable. O2 saturation was greater than 92%. HEENT: Eyes, the sclerae were nonicteric. NECK: Jugular venous distention could not be assessed secondary to body habitus. CHEST: Full expansion. LUNGS: Adequate airway flow with no wheezes. CARDIOVASCULAR: Regular rate and rhythm with S1, S2, no S3. ABDOMEN: Soft, nontender, nondistended. EXTREMITIES: No clubbing, cyanosis or edema. NEUROLOGICAL: The patient was awake, alert, following commands. A detailed neuro exam was not performed. LABORATORY DATA: Reviewed. Electrolytes were noted. BUN and creatinine were normal. White count was normal. Hemoglobin and hematocrit were normal. Chest x-ray and CT reviewed. IMPRESSION: 1. A 6 mm nodule in a nonsmoker. 2. Abnormal CT chest revealing some ground-glass opacities compatible with air trapping, possibly pulmonary edema. 3. Echocardiogram revealing mild elevation in pulmonary artery pressure. 4. Normal ejection fraction. 5. Obesity. PLAN: 1. The patient is to discharge home later today. I will see her in followup in 6 months with a repeat CT chest. 2. Follow Cardiology input. 3. Outpatient pulmonary function testing if the patient continues to experience shortness of air. I do appreciate the privilege in sharing in the patient's care. ELOTN ZHOU MD DR: IRENA/siobhan JOB#: [id number] / [id number]
--- NOTE | 2019-06-12 08:56 | DS ---
DATE OF DISCHARGE: 06/10/2019 ADMISSION DIAGNOSIS: Chest pain. DISCHARGE DIAGNOSES: 1. Resolving atypical chest pain. 2. Incidental finding of very mild hypothyroidism. 3. Hypertension. HOSPITAL COURSE: The patient is a pleasant 68-year-old female who presented with chest pain. She does not really go to the doctor much. She came in on no meds. Basically, we did a full cardiac workup, everything was negative, but we did discover that her TSH was slightly high. I put her on low-dose Synthroid. She also had some blood pressure elevations. We put her on Norvasc 10 p.o. q. day. On the day of discharge, we examined her and she was doing well. We discharged to home with close outpatient followup and gave her prescriptions for the above meds and asked her to see GI as an outpatient. DISPOSITION: Home. ACTIVITY: As tolerated. DIET: Low sodium. MEDICATIONS: Please see the MRAD. TOTAL TIME: 32 minutes. CHRISTOS DESIR DO DR: NANNETTE/siobhan JOB#: [id number] / [id number]
== END 2019-06-10 15:28 | disposition home or self-care (01) | DRG 305 ==
LOC: ER 14:55 → 2 SOUTH 17:23
PROVIDERS: ADMIT Internal Medicine; ATTEND Internal Medicine
DX: I16.0 Hypertensive urgency (principal); J98.11 Atelectasis; R07.89 Other chest pain; I45.10 Unspecified right bundle-branch block; Z82.49 Family history of ischemic heart disease and other diseases of the circulatory system; E78.5 Hyperlipidemia, unspecified; E66.9 Obesity, unspecified; E07.81 Sick-euthyroid syndrome; I10 Essential (primary) hypertension; R09.02 Hypoxemia; Z68.31 Body mass index [BMI] 31.0-31.9, adult
CPT/HCPCS: 36415; 71045; 71275; 76705; 80053; 80061; 81001; 82550; 83690; 83735; 83880; 84443; 84484; 85025; 85610; 90471; 90686; 93005; 93306; J0360; J2405; Q9967; 99285-25; G0378

== ENCOUNTER → 2019-08-19 | Day surgery (SDC) | payer MEDICARE ==
[~2019-08-19] MED LIST: AMLO10TA8 PO; IV RINGERS,LACTATED 1000ML 1,000 ML IV SCH; LEVO25TA55 PO; LIDOCAINE 2% PF 5 ML VIAL. ONE; LOVA20TA2 PO; OMEP20TA63 PO; PROPOFOL 20 ML IV ONE; PROPOFOL 40 ML IV ONE
[2019-08-19 09:50] VITALS: BP 145/78
--- NOTE | 2019-08-20 13:07 | PATHOLOGY ---
[facility] Accession Number: [id number] . 01 Material submitted: . esophagus - DISTAL ESOPHAGUS BIOPSY. Modifiers: distal . 01 Clinical history: . GERD, screening . 02 Diagnosis: Esophageal biopsies, distal esophagus: - Segments of hyperplastic squamous esophageal mucosa consistent with reflux esophagitis. (JPM:talent assistant; 08/20/2019) MBR 08/20/2019 1251 Local . 02 Comment: Sections of the distal esophageal biopsy reveal segments of tangentially oriented hyperplastic squamous esophageal mucosa consistent with reflux esophagitis. There is no evidence of Humphrey's change, dysplasia, or malignancy. (JPM:talent assistant; 08/20/2019) . 02 Electronically signed: . Ron Rodriguez MD, Pathologist NPI- [id number] . 01 Gross description: . Received in formalin labeled "Nadeen Pascal, distal esophagus BX," are 4 segments of newman soft tissue measuring 1.5 x 0.6 x 0.2 cm in aggregate dimensions and ranging from 0.4 to 0.5 cm in maximum dimension. The specimen is submitted entirely in cassette A1. (TSD; 08/19/2019) TOB/TOB 08/19/2019 1726 Local . 02 Pathologist provided ICD-10: K21.9 . 02 CPT . 337731 Specimen Comment: A courtesy copy of this report has been sent to [phone], [phone] Specimen Comment: [id number] Specimen Comment: Report sent to and Performed at: 01 [facility] [address], [place], [place] [id number] MD Almas Schmidt MD Phone: [phone] Performed at: [facility] [address] [place], [place] [id number] MD Ron Rodriguez MD Phone: [phone]
== END ==
LOC: ENDOS 06:17
PROVIDERS: ATTEND Internal Medicine Gastroenterology
DX: R11.0 Nausea (principal); D12.2 Benign neoplasm of ascending colon; K29.50 Unspecified chronic gastritis without bleeding; K57.30 Diverticulosis of large intestine without perforation or abscess without bleeding; K21.0 Gastro-esophageal reflux disease with esophagitis; K64.0 First degree hemorrhoids; I10 Essential (primary) hypertension; E78.00 Pure hypercholesterolemia, unspecified; E03.9 Hypothyroidism, unspecified; F15.90 Other stimulant use, unspecified, uncomplicated
CPT/HCPCS: 43239; 45385; 88305; J2001; J2704; 45378